=== PATIENT | female | born 1985 | race Caucasian/White ===

== ENCOUNTER 2020-12-24 10:11 | Inpatient (IN) | payer BC, SELFPAY ==
[~2020-12-24] VITALS: Ht 162.6 cm; Wt 58.5 kg
[2020-12-24 10:20] VITALS: BP 96/46
--- NOTE | 2020-12-24 10:24 | NUR ---
Patient ambulated with steady gait to bed 3.
--- NOTE | 2020-12-24 10:30 | NUR ---
35 Y/O F BIB SELF FROM HOME, PATIENT PRESENTS TO ED WITH R PELVIC PAIN WITH NAUSEA BUT NO EPISODES OF EMESIS. DENIES VOMITING, CONSTIPATION, DYSURIA, DIARRHEA; SKIN IS PINK/WARM/DRY; AAOX4 WITH EVEN AND STEADY GAIT; LUNGS CLEAR BL; HR EVEN AND REGULAR; PT DENIES ANY FEVER, CP, SOB, OR COUGH AT THIS TIME; PATIENT STATES PAIN OF 10/10 AT THIS TIME; VSS; PATIENT POSITIONED FOR COMFORT; HOB ELEVATED; BEDRAILS UP X2; BED DOWN. ER MD MADE AWARE OF PT STATUS. PMH: DENIES NKA MED: IBUPROFEN 600MG (LAST DOSE 0900 TODAY) NO RELIEF
[2020-12-24] MEDS ORDERED: NACL 0.9% 1,000 ML IV ONE (11:05)
[2020-12-24] MEDS ORDERED: MORPHINE SULFATE 4 MG/ML SYR ONE (11:22)
[2020-12-24] MEDS ORDERED: MORPHINE SULFATE 4 MG/ML SYR IVP ONE (11:25)
[2020-12-24 11:33] LABS: BASOPHILS % (AUTO) 0.1 % (0.0-2.0); HEMATOCRIT 43.3 % (36-48); HEMOGLOBIN 14.5 g/dL (12.0-16.0); LYMPHOCYTES # (AUTO) 0.9 K/uL (2.5-16.5); LYMPHOCYTES % (AUTO) 8.5 % (20.5-51.1); MEAN CORPUSCULAR HEMOGLOBIN 30 pg (27-31); MEAN CORPUSCULAR HGB CONC 34 g/dL (33-37); MEAN CORPUSCULAR VOLUME 90.9 fL (80-94); MONOCYTES # (AUTO) 0.3 K/uL (0.8-1.0); MONOCYTES % (AUTO) 2.5 % (1.7-9.3); NEUTROPHILS # (AUTO) 9.1 K/uL (1.8-7.7); NEUTROPHILS % (AUTO) 88.9 % (42.2-75.2); PLATELET COUNT (AUTO) 313 K/uL (140-450); RED BLOOD CELL COUNT(AUTO) 4.76 MIL/uL (4.20-5.40); WHITE BLOOD COUNT (AUTO) 10.3 K/uL (4.8-10.8)
--- NOTE | 2020-12-24 11:33 | NUR ---
PT UNABLE TO GIVE URINE AT THIS TIME
--- NOTE | 2020-12-24 11:40 | NUR ---
ULTRASOUND AT BEDSIDE
[2020-12-24 11:53] LABS: ALBUMIN 4.8 g/dL (3.4-5.0); ANION GAP 14.9 (8-16); CARBON DIOXIDE 23.5 mmol/L (21-32); CREATININE 0.7 mg/dL (0.6-1.3); POTASSIUM 3.4 mmol/L (3.5-5.1); TOTAL BILIRUBIN 0.8 mg/dL (0.0-1.0)
--- NOTE | 2020-12-24 11:57 | NUR ---
ALTAGRACIA WAS SWABBED AND DROPPED OFF AT LAB WITH WILLIAM.
[2020-12-24 11:58] LABS: PROTHROMBIN TIME 9.6 secs (10.8-13.4)
[2020-12-24] MEDS ORDERED: DEXT 5% / LACT RING 1,000 ML IV ONE (12:50)
[2020-12-24 13:31] LABS: APPEARANCE,URINE CLEAR (CLEAR); BILIRUBIN,URINE NEGATIVE (NEGATIVE); BLOOD, URINE NEGATIVE (NEGATIVE); COLOR,URINE YELLOW (YELLOW); LEUKOCYTE ESTERASE ,URINE NEGATIVE (NEGATIVE); NITRITE, URINE NEGATIVE (NEGATIVE); UGLUCOSE NEGATIVE (NEGATIVE)
[2020-12-24 13:40] LABS: RBC,URINE 0-5 /HPF (0-5); WBC,URINE 0-5 /HPF (0-5)
[2020-12-24] MEDS: LACTATED RINGERS 1,000 ML IV SCH (13:50)
[2020-12-24] MEDS ORDERED: MORPHINE SULFATE 4 MG/ML SYR IVP PRN (13:50)
[2020-12-24] MEDS ORDERED: ACETAMINOPHEN 325 MG TAB PO PRN (13:50)
[2020-12-24] MEDS ORDERED: MORPHINE SULFATE 4 MG/ML SYR IVP SCH (14:00)
--- NOTE | 2020-12-24 15:16 | NUR ---
Patient will be admitted to care of WESLY ELIZABETH. Admited to [facility]. Will go to room 104B. Belongings list completed. Report to JUNE ROCA.
--- NOTE | 2020-12-24 15:30 | NUR ---
REC'D PT FROM ED. PT A/Ox4, RA. McmanusAC 20G INFUSING LR/D5 AT 125, IV SITE DRY, CLEAN INTACT , PATENT. LUNGS CLEAR, S1S2, NO PERIPHERAL EDEMA NOTED, CAP REFILL<3 SEC. PT CAN AMBULATE WITHOUT ASSISTANCE. CALL LIGHT WITHIN REACH, BED LOWEST POSITION. WILL CONTINUE TO MONITOR
[2020-12-24 16:00] VITALS: BP 98/53
[2020-12-24] MEDS: MORPHINE SULFATE 4 MG/ML SYR IVP PRN (16:26)
[2020-12-24] MEDS: ONDANSETRON 4 MG/2 ML VIAL IVP PRN (17:10)
--- NOTE | 2020-12-24 17:24 | NUR ---
LEFT AND RIGHT NARES SPECIMEN COLLECTED FROM MRSA SCREENING, DELIVERED TO LAB FOR PROCESSING, PT TOLERATED PROCEDURE WELL.
--- NOTE | 2020-12-24 19:35 | NUR ---
ENDORSED PT TO BANKING MANAGER NURSE. RA. ROOT 20G INFUSING LR/D5, DRY, CLEAN INTACT, PATENT. CALL LIGHT WITHIN REACH. ALL SAFETY MEASURES IN PLACE.
[2020-12-24 20:00] VITALS: BP 119/61
--- NOTE | 2020-12-24 20:00 | NUR ---
PATIENT RECEIVED IN BED AWAKE AND COHERENT, C/O PAIN 6/10 IN HER RIGHT ABD, AMBULATES WITH STABLE GAIT TO THE BATHROOM.
--- NOTE | 2020-12-24 20:10 | NUR ---
RN CAME BACK TO THE ROOM INTRODUCED SELF TO THE PATIENT. UPDATED THE BOARD AND THE PLAN OF CARE FOR THE NEXT 12 HOURS.
[2020-12-24] MEDS: HYDROcodone/APAP 5/325 MG 1 TAB TAB PO PRN (20:58)
--- NOTE | 2020-12-24 22:30 | NUR ---
PATIENT WAS MEDICATED WITH NORCO ORDERED, CONTINUE TO MONITOR, REMINDED THAT SHE CAN NOT TAKE ANYTHING AFTER MIDNIGHT
--- NOTE | 2020-12-24 23:00 | NUR ---
PATIENT CALLED VIA CALL LIGHT RN ASSISTED HER TO THE BATHROOM
[2020-12-25] VITALS: BP_DIAS 61
[2020-12-25] MEDS: LACTATED RINGERS 1,000 ML IV SCH ×2 (00:42→07:08)
[2020-12-25] MEDS: ONDANSETRON 4 MG/2 ML VIAL IVP PRN ×2 (01:24→11:54)
[2020-12-25 04:00] VITALS: BP 125/70
--- NOTE | 2020-12-25 05:30 | NUR ---
LACTATED RINGERS WAS JUST HANGED AROUND 0100
[2020-12-25 06:16] LABS: BASOPHILS % (AUTO) 0.4 % (0.0-2.0); EOSINOPHILS # (AUTO) 0.1 K/uL (0-0.4); EOSINOPHILS % (AUTO) 0.7 % (0.0-4.0); HEMATOCRIT 36.1 % (36-48); HEMOGLOBIN 12.2 g/dL (12.0-16.0); LYMPHOCYTES # (AUTO) 2.4 K/uL (2.5-16.5); LYMPHOCYTES % (AUTO) 35.5 % (20.5-51.1); MEAN CORPUSCULAR HEMOGLOBIN 31 pg (27-31); MEAN CORPUSCULAR HGB CONC 34 g/dL (33-37); MEAN CORPUSCULAR VOLUME 90.7 fL (80-94); MONOCYTES # (AUTO) 0.5 K/uL (0.8-1.0); MONOCYTES % (AUTO) 6.9 % (1.7-9.3); NEUTROPHILS # (AUTO) 3.9 K/uL (1.8-7.7); NEUTROPHILS % (AUTO) 56.5 % (42.2-75.2); PLATELET COUNT (AUTO) 264 K/uL (140-450); RED BLOOD CELL COUNT(AUTO) 3.98 MIL/uL (4.20-5.40); RED CELL DISTRIBUTION WIDTH 12.9 % (11.6-13.7); WHITE BLOOD COUNT (AUTO) 6.8 K/uL (4.8-10.8)
[2020-12-25 07:08] LABS: ANION GAP 11.5 (8-16); CARBON DIOXIDE 27.1 mmol/L (21-32); CREATININE 0.6 mg/dL (0.6-1.3); POTASSIUM 3.6 mmol/L (3.5-5.1)
[2020-12-25 08:00] VITALS: BP 108/66
--- NOTE | 2020-12-25 08:00 | NUR ---
REPORT WERE GIVEN, CONTINUATION OF CARE ENDORSED.
--- NOTE | 2020-12-25 08:05 | NUR ---
RECEIVED BEDSIDE REPORT FROM NIGHTSHIFT NURSE FOR CONTINUITY OF CARE.
--- NOTE | 2020-12-25 08:53 | NUR ---
PATIENT ROUNDING PERFORMED. PATIENT UP AND ALERT IN BED. STATES HAVING A GOOD DAY SO FAR, DENIES PAIN. RESPIRATIONS EVEN AND UNLABORED. NO SIGNS OF DISTRESS. SAFETY MEASURES IN PLACE. WILL CONTINUE TO MONITOR.
--- NOTE | 2020-12-25 10:36 | NUR ---
PATIENT HAS BEEN SCREENED AND CATEGORIZED LOW NUTRITION RISK. PATIENT WILL BE SEEN WITHIN 7 DAYS OF ADMISSION. 12/30/20 BERNICE SNOW MBA, RD
--- NOTE | 2020-12-25 11:23 | NUR ---
PATIENT ROUNDING PERFORMED. PATIENT STATES MILD PAIN, TOLERABLE AT THE MOMENT, REFUSED PRN. PENDING OBGYN ROUNDING. SAFETY MEASURES IN PLACE. WILL CONTINUE TO MONITOR.
[2020-12-25] MEDS: MORPHINE SULFATE 4 MG/ML SYR IVP PRN (11:53)
--- NOTE | 2020-12-25 12:09 | NUR ---
ADMINISTERED PRESCRIBED MEDS FOR PRN 5/10 PAIN AND NAUSEA ORDERED BY MD. PATIENT TOLERATED WELL. MEDICATION EDUCATION PROVIDED. PATIENT VERBALIZED UNDERSTANDING. SAFETY MEASURES IN PLACE. WILL CONTINUE TO MONITOR.
[2020-12-25] MEDS: HYDROcodone/APAP 5/325 MG 1 TAB TAB PO PRN ×2 (18:34→22:51)
--- NOTE | 2020-12-25 18:41 | NUR ---
ADMINISTERED PRESCRIBED MEDICATION FOR PRN 6/10 PAIN. PATIENT TOLERATED WELL. MEDICATION EDUCATION PROVIDED. PATIENT VERBALIZED UNDERSTANDING. SAFETY MEASURES IN PLACE. WILL CONTINUE TO MONITOR
--- NOTE | 2020-12-25 19:22 | NUR ---
ENDORSED PATIENT TO NIGHTSHIFT NURSE FOR CONTINUITY OF CARE.
--- NOTE | 2020-12-25 19:24 | NUR ---
RECEIVED PT IN STABLE CONDITION FROM AM NURSE. AWAKE,ALERT AND ORIENTED X4. AMBULATORY. MED SURG PT. PAIN IS BETTER AFTER GIVEN NORCO AT 1839. PT HAS IVF INFUSING WELL ON THE LT AC G#20.CLEAR AND PATENT. PLAN OF CARE DISCUSSED ND VERBALIZED UNDERSTANDING. FREQ ROUNDS NEEDED. BED ON LOWEST POSITION. CALL LIGHT WITHIN EASY REACH. WILL CONTINUE TO MONITOR.
[2020-12-25 20:00] VITALS: BP 91/49
--- NOTE | 2020-12-25 22:55 | NUR ---
C/O ABDOMINAL PAIN . MEDICATED WITH NORCO ORDERED. WILL CONTINUE TO MONITOR.
--- NOTE | 2020-12-26 00:05 | NUR ---
INSTRUCTED TO BE NPO AFTER MN. VERBALIZED UNDERSTANDING.
--- NOTE | 2020-12-26 01:30 | NUR ---
MADE ROUNDS. ASLEEP. NO S/S OF ANY DISCOMFORT NOTED.
[2020-12-26 02:35] VITALS: BP 101/58
[2020-12-26] MEDS: ONDANSETRON 4 MG/2 ML VIAL IVP PRN (02:43)
[2020-12-26] MEDS: MORPHINE SULFATE 4 MG/ML SYR IVP PRN (02:48)
--- NOTE | 2020-12-26 02:48 | NUR ---
C.O PAIN . MEDICATED ORDERED WITH MORPHINE, ZOFRAN IVP GIVEN PRIOR TO THE MORPHINE FOR SHE SAID SHE FEELS A LITTLE NAUSEOUS WITH MORPHINE.
[2020-12-26] MEDS: LACTATED RINGERS 1,000 ML IV SCH (04:36)
--- NOTE | 2020-12-26 04:40 | NUR ---
PT AWAKE. NEW IV LR @75ML/HR JUST STARTED. PT SAID PAIN IS MUCH LESS 08/06 . WILL CONTINUE TO MONITOR.
--- NOTE | 2020-12-26 06:34 | NUR ---
PT GOT UP TO THE BATHROOM AND VOIDED. NO C/O PAIN AT THIS TIME.
--- NOTE | 2020-12-26 07:25 | NUR ---
ENDORSED PT IN STABLE CONDITION TO AM NURSE.
[2020-12-26 11:04] VITALS: BP 93/46
[2020-12-26] MEDS: HYDROcodone/APAP 5/325 MG 1 TAB TAB PO PRN (11:18)
== END 2020-12-26 12:20 | disposition home or self-care (01) | DRG 833 ==
LOC: MED 10:11 → MTU 13:49
PROVIDERS: ADMIT Internal Medicine; ATTEND Internal Medicine
DX: O34.80 Maternal care for other abnormalities of pelvic organs, unspecified trimester (principal); N83.202 Unspecified ovarian cyst, left side; Z3A.00 Weeks of gestation of pregnancy not specified
CPT/HCPCS: 36415; 76856; 80048; 80053; 81001; 84702; 85025; 85610; 86886; 86900; 86901; 87081; 96361; 96374; 99285; J2270; J2405